=== PATIENT | female | born 1940 | race Caucasian/White ===

== ENCOUNTER 2017-01-25 13:23 | Inpatient (IN) | payer MEDICARE, MEDICAID ==
[2017-01-25] VITALS: BP 143/85
[~2017-01-25] VITALS: Ht 170.2 cm; Wt 54.4 kg
[2017-01-25 15:13] LABS: BASOPHILS % 0.5 % (0.0-2.0); EOSINOPHILS % 0.1 % (0.0-5.0); HEMATOCRIT. 34.4 % (36.0-48.0); HEMOGLOBIN. 11.4 g/dL (12.0-16.0); LYMPHOCYTES % 8.1 % (20.0-50.0); MEAN CORPUSCULAR HEMOGLOBIN 29.7 pg (28.0-32.0); MEAN CORPUSCULAR VOLUME 89.5 fL (81.0-99.0); MEAN PLATELET VOLUME 9.5 fl (7.4-10.4); MONOCYTES % 2.7 % (2.0-8.0); NEUTROPHILS % 88.6 % (40.0-76.0); PLATELET 160 x1000/uL (130-400); RED BLOOD CELL COUNT 3.85 mill/uL (4.2-5.4); RED CELL DISTRIBUTION WIDTH 15.7 % (11.6-14.6)
[2017-01-25] MEDS ORDERED: LORAZEPAM 2MG/ML CPJ IV ONE (15:15)
[2017-01-25 15:18] LABS: CHLORIDE 103 mEq/L (98-107)
[2017-01-25 15:24] LABS: CARBON DIOXIDE 22 mEq/L (21-32); ETHANOL BLOOD < 10 mg/dL
[2017-01-25 15:28] LABS: CLARITY URINE CLEAR (CLEAR); COLOR URINE YELLOW (YELLOW); GLUCOSE URINE NEGATIVE (NEGATIVE); KETONES URINE NEGATIVE (NEGATIVE); LEUKOCYTE ESTERASE URINE 2+ (NEGATIVE); NITRITE URINE NEGATIVE (NEGATIVE); OCCULT BLOOD URINE NEGATIVE (NEGATIVE); PROTEIN URINE 2+ (NEGATIVE); SPECIFIC GRAVITY URINE 1.018 (1.005-1.030); UROBILINOGEN URINE 0.2 E.U./dL (0.2-1.0)
[2017-01-25 15:28] LABS: TROPONIN I 0.03 ng/mL (0.00-0.04)
[2017-01-25] MEDS ORDERED: ONDANSETRON HCL 4MG/2ML VIAL IV ONE (15:30)
[2017-01-25 15:40] LABS: *AMPHETAMINES SCREEN URINE NEGATIVE (NEGATIVE); *BARBITURATES SCREEN URINE NEGATIVE (NEGATIVE); *BENZODIAZEPINES SCREEN URINE NEGATIVE (NEGATIVE); *COCAINE SCREEN URINE NEGATIVE (NEGATIVE); CANNABINOID URINE SCREEN NEGATIVE (NEGATIVE); METHADONE URINE SCREEN NEGATIVE (NEGATIVE); OPIATES URINE SCREEN NEGATIVE (NEGATIVE); PHENCYCLIDINE URINE SCREEN NEGATIVE (NEGATIVE)
[2017-01-25] MEDS ORDERED: CEFTRIAXONE 2 G PREMIX 50 ML IV ONE (16:30)
[2017-01-25] MEDS ORDERED: CALCIUM GLUCONATE 100MG/ML 10ML VIAL IV ONE (16:30)
[2017-01-25] MEDS ORDERED: CALCIUM GLUCONATE 1000MG in DEXTROSE 5% WATER 50ML IV NR (16:45)
[2017-01-25] MEDS ORDERED: DEXTROSE 50% WATER 50ML SYRINGE IV PRN (21:30)
[2017-01-25] MEDS ORDERED: IPRATROPIUM/ALBUTEROL 0.5-3(2.5)MG/3ML NEB INH PRN (21:30)
[2017-01-25] MEDS ORDERED: CLONIDINE 0.1MG TABLET PO PRN (21:30)
[2017-01-25] MEDS ORDERED: ACETAMINOPHEN 325MG TABLET PO PRN (21:30)
[2017-01-25] MEDS ORDERED: ONDANSETRON HCL 4MG/2ML VIAL IV PRN (21:30)
[2017-01-25] MEDS ORDERED: MAGNESIUM/ALUMINUM HYDROXIDE/SIMETHICONE 30ML UDC PO PRN (21:30)
[2017-01-25 21:54] LABS: INR 2.2; PROTHROMBIN TIME 22.7 sec (9.4-11.6)
[2017-01-25] MEDS ORDERED: POTASSIUM CHLORIDE 20MEQ TABLET SR PO NR (21:58)
[2017-01-25] MEDS ORDERED: MAGNESIUM 2 G PREMIX 50 ML IV ONE (22:00)
[2017-01-25 22:15] VITALS: BP 143/85
[2017-01-26] MEDS ORDERED: MAGNESIUM 2 G PREMIX 50 ML IV NR
[2017-01-26] MEDS: DEXT 5%/0.45% NACL KCL 20MEQ/L 1,000 ML IV SCH (00:16)
[2017-01-26 04:00] VITALS: BP 114/49
[2017-01-26] MEDS: SODIUM CHLORIDE 0.9% INJ 3ML FLUSH IVF SCH ×3 (06:34→22:06)
[2017-01-26] MEDS: LEVOTHYROXINE SODIUM 100MCG TABLET PO SCH (06:34)
[2017-01-26] MEDS: INSULIN LISPRO 100 UNITS/ML SUBCUT SCH ×4 (06:36→21:00)
[2017-01-26] MEDS: BLOOD SUGAR DIAGNOSTIC STRIP TEST SCH ×4 (06:36→21:00)
[2017-01-26 06:40] LABS: INR 2.1; PROTHROMBIN TIME 21.6 sec (9.4-11.6)
[2017-01-26 07:03] LABS: BASOPHILS % 0.6 % (0.0-2.0); EOSINOPHILS % 1.4 % (0.0-5.0); HEMATOCRIT. 33.6 % (36.0-48.0); HEMOGLOBIN. 11.1 g/dL (12.0-16.0); LYMPHOCYTES % 25.2 % (20.0-50.0); MEAN CORPUSCULAR HEMOGLOBIN 29.6 pg (28.0-32.0); MEAN CORPUSCULAR VOLUME 89.8 fL (81.0-99.0); MEAN PLATELET VOLUME 9.9 fl (7.4-10.4); MONOCYTES % 7.6 % (2.0-8.0); NEUTROPHILS % 65.2 % (40.0-76.0); PLATELET 140 x1000/uL (130-400); RED BLOOD CELL COUNT 3.74 mill/uL (4.2-5.4); RED CELL DISTRIBUTION WIDTH 15.7 % (11.6-14.6)
[2017-01-26 08:37] VITALS: BP 106/50
[2017-01-26 10:12] LABS: PHOSPHORUS 3.5 mg/dL (2.5-4.9)
[2017-01-26] MEDS: POTASSIUM CHLORIDE 20MEQ TABLET SR PO SCH ×3 (10:45→16:43)
[2017-01-26] MEDS: CALCIUM CARBONATE/VITAMIN D3 500MG TABLET PO SCH ×2 (10:45→16:43)
[2017-01-26] MEDS ORDERED: MAGNESIUM 4 G PREMIX 100 ML IV SCH (11:00)
[2017-01-26] MEDS ORDERED: CALCIUM CHLORIDE 1,000 MG in DEXT 5% WATER 100 ML IV SCH (11:00)
[2017-01-26 12:40] VITALS: BP 103/53
[2017-01-26 16:02] VITALS: BP 115/60
[2017-01-26] MEDS ORDERED: FURO80TA87 PO (16:12)
[2017-01-26] MEDS ORDERED: WARF2TAB55 PO ×2 (16:12)
[2017-01-26] MEDS ORDERED: POTA20TA82 PO (16:12)
[2017-01-26] MEDS ORDERED: LEVO75TA PO (16:12)
[2017-01-26] MEDS ORDERED: GLIM2TAB2 PO (16:12)
[2017-01-26] MEDS ORDERED: OLAN2.5T3 PO (16:12)
[2017-01-26] MEDS ORDERED: DULO60CA44 PO (16:12)
[2017-01-26] MEDS ORDERED: HYDR12.54 PO (16:12)
[2017-01-26] MEDS ORDERED: LINA5TAB PO (16:12)
[2017-01-26] MEDS ORDERED: DILT240C91 PO (16:12)
[2017-01-26] MEDS ORDERED: ESOM40CA PO (16:12)
[2017-01-26] MEDS ORDERED: METO-396 PO (16:12)
[2017-01-26] MEDS ORDERED: ATOR20TA PO (16:12)
[2017-01-26 16:58] LABS: CREATINE KINASE MB FRACTION 2.4 ng/mL (0.5-3.6); TROPONIN I 0.06 ng/mL (0.00-0.04)
[2017-01-26] MEDS ORDERED: CEFTRIAXONE 1 G PREMIX 50 ML IV SCH (17:00)
[2017-01-26] MEDS ORDERED: WARFARIN SODIUM 2.5MG TABLET PO SCH (18:00)
[2017-01-26 20:00] VITALS: BP 119/49
[2017-01-26] MEDS ORDERED: BISACODYL 10MG SUPP PR PRN (22:45)
[2017-01-27] VITALS: BP 116/69
[2017-01-27 00:24] LABS: CREATINE KINASE MB FRACTION 2.6 ng/mL (0.5-3.6); TROPONIN I 0.04 ng/mL (0.00-0.04)
[2017-01-27 04:00] VITALS: BP 121/55
[2017-01-27] MEDS: SODIUM CHLORIDE 0.9% INJ 3ML FLUSH IVF SCH ×2 (06:14→13:56)
[2017-01-27] MEDS: LEVOTHYROXINE SODIUM 100MCG TABLET PO SCH (06:14)
[2017-01-27] MEDS: BLOOD SUGAR DIAGNOSTIC STRIP TEST SCH ×4 (06:15→20:12)
[2017-01-27] MEDS: INSULIN LISPRO 100 UNITS/ML SUBCUT SCH ×4 (06:17→21:00)
[2017-01-27 07:30] LABS: INR 2.2; PROTHROMBIN TIME 22.4 sec (9.4-11.6)
[2017-01-27 08:00] VITALS: BP 132/55
[2017-01-27 08:00] LABS: CREATINE KINASE MB FRACTION 2.5 ng/mL (0.5-3.6); PHOSPHORUS 3.1 mg/dL (2.5-4.9); TROPONIN I 0.03 ng/mL (0.00-0.04)
[2017-01-27] MEDS: CALCIUM CARBONATE/VITAMIN D3 500MG TABLET PO SCH ×2 (08:53→16:03)
[2017-01-27] MEDS: DEXT 5%/0.45% NACL KCL 20MEQ/L 1,000 ML IV SCH (08:54)
[2017-01-27 12:00] VITALS: BP 112/55
[2017-01-27] MEDS ORDERED: LOPERAMIDE HCL 2MG CAPSULE PO NR (14:00)
[2017-01-27 16:00] VITALS: BP 186/61
[2017-01-27] MEDS: SODIUM CHLORIDE 0.9% 1,000 ML IV SCH (16:03)
[2017-01-27] MEDS: CEFTRIAXONE 1 G PREMIX 50 ML IV SCH (16:03)
[2017-01-27] MEDS ORDERED: WARFARIN SODIUM 2.5MG TABLET PO SCH (18:00)
[2017-01-27 20:00] VITALS: BP 112/56
[2017-01-28] VITALS: BP 123/63
[2017-01-28 04:00] VITALS: BP 138/69
[2017-01-28] MEDS: SODIUM CHLORIDE 0.9% INJ 3ML FLUSH IVF SCH ×3 (06:47→14:00)
[2017-01-28] MEDS: INSULIN LISPRO 100 UNITS/ML SUBCUT SCH ×2 (06:48→11:52)
[2017-01-28] MEDS: BLOOD SUGAR DIAGNOSTIC STRIP TEST SCH ×2 (06:48→11:52)
[2017-01-28] MEDS: SODIUM CHLORIDE 0.9% 1,000 ML IV SCH (06:48)
[2017-01-28] MEDS: LEVOTHYROXINE SODIUM 100MCG TABLET PO SCH (06:50)
[2017-01-28 07:30] LABS: INR 1.8
[2017-01-28] MEDS: CALCIUM CARBONATE/VITAMIN D3 500MG TABLET PO SCH (08:06)
[2017-01-28] MEDS: CEFTRIAXONE 1 G PREMIX 50 ML IV SCH (08:07)
[2017-01-28 08:57] VITALS: BP 132/66
[2017-01-28 12:00] VITALS: BP 113/61
[2017-01-28] MEDS ORDERED: MAGNESIUM 2 G PREMIX 50 ML IV SCH (14:00)
[2017-01-28 15:41] VITALS: BP 132/66
[2017-01-28 16:00] VITALS: BP 127/70
[2017-01-28] MEDS ORDERED: WARFARIN SODIUM 2.5MG TABLET PO SCH (18:00)
[2017-01-30 04:07] LABS: 25-HYDROXY VITAMIN D3 20 ng/mL (.)
== END 2017-01-28 17:36 | disposition home or self-care (01) | DRG 52 ==
LOC: ER 13:23 → EDBEDREQ 16:20 → EDBEDREQSVC 19:15 → ENRESERV 20:06 → 8WST 21:39 → EDBEDREQTM 21:44 → EDBEDREQSVC 21:44
PROVIDERS: ADMIT Internal Medicine; ATTEND Internal Medicine
DX: G93.41 Metabolic encephalopathy (principal); E11.22 Type 2 diabetes mellitus with diabetic chronic kidney disease; I13.0 Hypertensive heart and chronic kidney disease with heart failure and stage 1 through stage 4 chronic kidney disease, or unspecified chronic kidney disease; I50.9 Heart failure, unspecified; N39.0 Urinary tract infection, site not specified; E83.51 Hypocalcemia; E11.9 Type 2 diabetes mellitus without complications; E87.6 Hypokalemia; E03.9 Hypothyroidism, unspecified; E78.00 Pure hypercholesterolemia, unspecified; E83.42 Hypomagnesemia; I48.2 Chronic atrial fibrillation; I70.8 Atherosclerosis of other arteries; M21.969 Unspecified acquired deformity of unspecified lower leg; M71.20 Synovial cyst of popliteal space [Baker], unspecified knee; N18.3 Chronic kidney disease, stage 3 (moderate); Z82.49 Family history of ischemic heart disease and other diseases of the circulatory system; Z85.3 Personal history of malignant neoplasm of breast; Z86.73 Personal history of transient ischemic attack (TIA), and cerebral infarction without residual deficits; Z90.12 Acquired absence of left breast and nipple; Z90.710 Acquired absence of both cervix and uterus; Z95.0 Presence of cardiac pacemaker; Z95.2 Presence of prosthetic heart valve
CPT/HCPCS: 36415; 51702; 70450; 71010; 74176; 80048; 80053; 80061; 80305; 81001; 82270; 82306; 82550; 82553; 82962; 83036; 83605; 83735; 83880; 83970; 84100; 84439; 84443; 84484; 85025; 85379; 85610; 86376; 86850; 86900; 87015; 87040; 87045; 87427; 87449; 87493; 89055; 93005; 93306; 93970; 96374; 96375; 97116; 97162; 97166; 99291; C1893; G0482; J0610; J0696; J2060; J2405; J3475; J3490; J7030; J7060